=== PATIENT | female | born 1995 | race Caucasian/White ===

== ENCOUNTER → 2018-06-28 | Outpatient (CLI) | payer BC, OTHER ==
[~2018-06-28] MED LIST: AMOX500 PO; BIRTH CONTROL; CODACEE120 PO; Zithromax250 MG PO; [UNRECOGNIZED DRUG - REMARK]
[2018-06-30 15:07] LABS: HPV 16 Negative (Negative); HPV 18 Negative (Negative); HPV OTHER HR TYPES Negative (Negative)
[2018-07-01 03:12] LABS: CHLAMYDIA TRACHOMATIS, NAA Negative (Negative); NEISSERIA GONORRHOEAE, NAA Negative (Negative)
== END | disposition home or self-care (01) ==
LOC: LAB SHORT 19:20 → LAB 19:20
PROVIDERS: Nurse Practitioner Women's Health
DX: Z12.4 Encounter for screening for malignant neoplasm of cervix (principal); Z11.3 Encounter for screening for infections with a predominantly sexual mode of transmission; Z91.89 Other specified personal risk factors, not elsewhere classified
CPT/HCPCS: 87491; 87591; 87624; G0123

== ENCOUNTER → 2023-12-24 | Outpatient (CLI) | payer OTHER | LOC: LAB SHORT 11:19 → LAB 11:19 | DX: L03.114 Cellulitis of left upper limb (principal) | CPT/HCPCS: 87070; 87205 ==

== ENCOUNTER → 2024-01-26 | Outpatient (CLI) | payer OTHER ==
[2024-01-29 15:37] LABS: APTIMA MEDIA TYPE Urine; C. TRACHOMATIS BY TMA Negative (Negative); N. GONORRHOEAE BY TMA Negative (Negative); SPECIMEN SOURCE Urine
== END ==
LOC: LAB 17:20 → LAB SHORT 17:20
PROVIDERS: Family Medicine
DX: Z34.01 Encounter for supervision of normal first pregnancy, first trimester (principal); Z3A.01 Less than 8 weeks gestation of pregnancy
CPT/HCPCS: 87086; 87147; 87491; 87591

== ENCOUNTER → 2024-04-08 | Outpatient (CLI) | payer OTHER ==
[2024-04-08 19:48] LABS: Protein, Urine Random 13.5 mg/dL (0.0-11.9); Protein/Creat Ratio, Ur Random 0.1
== END ==
LOC: LAB SHORT 16:56 → LAB 16:56
PROVIDERS: Family Medicine
DX: R74.8 Abnormal levels of other serum enzymes (principal)
CPT/HCPCS: 82570; 84156

== ENCOUNTER → 2024-08-22 | Outpatient (CLI) | payer OTHER | LOC: LAB 17:54 → LAB SHORT 17:54 | DX: Z34.03 Encounter for supervision of normal first pregnancy, third trimester (principal); Z3A.36 36 weeks gestation of pregnancy | CPT/HCPCS: 87081; 87150 ==

== ENCOUNTER → 2024-10-19 | Outpatient (CLI) | payer OTHER ==
[~2024-10-19] MED LIST changes: +PRENATAL TABLE1 EAC2 PO
== END | disposition home or self-care (01) ==
LOC: LAB SHORT 17:14 → LAB 17:14
PROVIDERS: Family Medicine
DX: Z12.4 Encounter for screening for malignant neoplasm of cervix (principal)
CPT/HCPCS: 87624; G0123